=== PATIENT | male | born 1960 | race Caucasian/White ===

== ENCOUNTER 2019-09-16 19:19 | Emergency (ER) | payer OTHER ==
[~2019-09-16] VITALS: Ht 185.4 cm; Wt 62.6 kg
[2019-09-16 19:28] VITALS: BP 109/73
--- NOTE | 2019-09-16 19:28 | NUR ---
59 Y/O MALE BIBA FOR NEAR SYNCOPAL EPISODE. PER PATIENT, " I WAS AT [facility], AND WAS EATING A WHOLE BUNCH OF CARBS, WENT TO THE BATHROOM AND FELT LIKE I NEEDED TO FAINT, BUT I DIDN'T". A/OX3; FOLLOWS COMMANDS; BREATHING UNLABORED AND SYMMETRICAL; 100% ON RA. SLIGHTLY DIAPHORETIC. ERMD MADE AWARE OF STATUS. SIDE RAILSX1. PLACED ON MONITOR. WILL CONTINUE TO MONITOR. PMH:HIGH CHOLESTEROL RX:HIGH CHOLESTEROL MEDICATION
[2019-09-16] MEDS ORDERED: NACL 0.9% 1,000 ML IV ONE (19:30)
[2019-09-16 19:51] LABS: BASOPHILS # (AUTO) 0.1 K/uL (0.00-0.22); BASOPHILS % (AUTO) 0.7 % (0.0-2.0); EOSINOPHILS # (AUTO) 0.3 K/uL (0-0.4); EOSINOPHILS % (AUTO) 3.9 % (0.0-4.0); HEMATOCRIT 42.9 % (36-52); HEMOGLOBIN 14.3 g/dL (12.0-18.0); LYMPHOCYTES # (AUTO) 1.6 K/uL (2.0-11.5); LYMPHOCYTES % (AUTO) 20.8 % (20.5-51.1); MEAN CORPUSCULAR HEMOGLOBIN 32 pg (27-31); MEAN CORPUSCULAR HGB CONC 33 g/dL (33-37); MEAN CORPUSCULAR VOLUME 95.4 fL (80-94); MONOCYTES # (AUTO) 0.5 K/uL (0.8-1.0); MONOCYTES % (AUTO) 6.6 % (1.7-9.3); NEUTROPHILS # (AUTO) 5.3 K/uL (1.8-7.7); PLATELET COUNT (AUTO) 217 K/uL (140-450); RED BLOOD CELL COUNT(AUTO) 4.49 MIL/uL (4.20-6.10); RED CELL DISTRIBUTION WIDTH 12.5 % (11.6-13.7); WHITE BLOOD COUNT (AUTO) 7.8 K/uL (4.8-10.8)
[2019-09-16 20:02] LABS: ANION GAP 15.1 (8-16); CARBON DIOXIDE 25.4 mmol/L (21-32); CREATININE 1.3 mg/dL (0.7-1.3); POTASSIUM 3.5 mmol/L (3.5-5.1)
[2019-09-16 20:17] LABS: ALBUMIN 3.7 g/dL (3.4-5.0); FREE T4 (FREE THYROXINE) 0.8 ng/dL (0.76-1.46); THYROID STIMULATING HORMONE 2.53 uIU/mL (0.34-3.74); TOTAL BILIRUBIN 0.4 mg/dL (0.0-1.0)
--- NOTE | 2019-09-16 20:20 | NUR ---
ekg performed at bedside
[2019-09-16 21:32] VITALS: BP 111/68
--- NOTE | 2019-09-16 21:32 | NUR ---
Patient discharged with v/s stable. Written and verbal after care instructions given and explained. Patient verbalized understanding. Ambulatory with steady gait. All questions addressed prior to discharge. Advised to follow up with PMD.
[2019-09-16 23:20] LABS: APPEARANCE,URINE SL CLOUDY (CLEAR); BLOOD, URINE NEGATIVE (NEGATIVE); COLOR,URINE YELLOW (YELLOW); LEUKOCYTE ESTERASE ,URINE NEGATIVE (NEGATIVE); NITRITE, URINE NEGATIVE (NEGATIVE); PH,URINE 5.5 (5.0-9.0); UGLUCOSE NEGATIVE (NEGATIVE)
[2019-09-16 23:23] LABS: BARBITURATE, URINE NEG. ng/ml (NEG <=200); BENZODIAZEPINE, URINE NEG. ng/mL (NEG <=200); CANNABINOID, URINE NEG. ng/mL (NEG <=50); COCAINE, URINE NEG. ng/mL (NEG <=300); OPIATE, URINE NEG. ng/mL (NEG <=2000); PHENCYCLIDINE SCREEN,URINE NEG. ng/mL (NEG <=25)
[2019-09-16 23:48] LABS: BILIRUBIN,URINE NEGATIVE (NEGATIVE)
== END 2019-09-16 21:32 | disposition home or self-care (01) ==
LOC: MED 19:19
DX: R55 Syncope and collapse (principal); E78.00 Pure hypercholesterolemia, unspecified; Z98.890 Other specified postprocedural states
CPT/HCPCS: 36415; 71045; 80053; 80305; 81003; 84439; 84443; 84484; 85025; 93005; 96360; 96361; 99284; J7030; Q0092